=== PATIENT | female | born 1995 | race Hispanic/Latino ===

== ENCOUNTER 2018-12-03 22:26 | Emergency (ER) | payer OTHER ==
[~2018-12-03] VITALS: Ht 154.9 cm; Wt 58.2 kg
[2018-12-03] MEDS ORDERED: WELLTAB40 PO (22:39)
[2018-12-03] MEDS ORDERED: FEMA2.5T4 PO (22:39)
[2018-12-04 00:53] LABS: BASO # 0.1 10^3/uL (0.0-0.2); BASO % 0.7 % (0.0-1.0); EOS # 0.1 10^3/uL (0.0-0.50); EOS % 1.6 % (0.0-3.0); HEMATOCRIT 37.5 % (36.0-47.0); HEMOGLOBIN 12.6 g/dl (12.0-15.5); LYMPH # 2.7 10^3/uL (1.5-6.5); LYMPH % 33.5 % (24.0-44.0); MEAN CORPUSCULAR HEMOGLOBIN 31.4 pg (27.0-33.0); MEAN CORPUSCULAR HGB CONC 33.6 g/dl (32.0-36.5); MEAN CORPUSCULAR VOLUME 93.5 fl (80.0-96.0); MONO # 0.7 10^3/uL (0.0-0.8); MONO % 8.8 % (0.0-5.0); NEUTROPHILS # 4.4 10^3/uL (1.8-7.7); NEUTROPHILS % 55.2 % (36.0-66.0); PLATELET COUNT, AUTOMATED 328 10^3/uL (150-450); RED BLOOD COUNT 4.01 10^6/uL (4.00-5.40)
[2018-12-04 01:17] LABS: ALBUMIN 3.8 GM/DL (3.2-5.2); ALT/SGPT 26 U/L (12-78); BILIRUBIN,DIRECT < 0.1 MG/DL (0.0-0.2); BILIRUBIN,TOTAL 0.2 MG/DL (0.2-1.0); BLOOD UREA NITROGEN 12 MG/DL (7-18); CALCIUM LEVEL 8.7 MG/DL (8.5-10.1); CARBON DIOXIDE LEVEL 30 MEQ/L (21-32); CHLORIDE LEVEL 105 MEQ/L (98-107); CREATININE FOR GFR 0.77 MG/DL (0.55-1.30); GLOMERULAR FILTRATION RATE > 60.0 (>60); GLUCOSE, FASTING 105 MG/DL (70-100); LIPASE 159 U/L (73-393); POTASSIUM SERUM 3.9 MEQ/L (3.5-5.1); SODIUM LEVEL 140 MEQ/L (136-145); TOTAL PROTEIN 7.2 GM/DL (6.4-8.2)
[2018-12-04] MEDS ORDERED: IBUPROFEN 800 MG TAB PO ONE (02:30)
--- NOTE | 2018-12-04 04:07 | REPVR ---
EXAM: CT Abdomen and Pelvis Without Contrast EXAM DATE/TIME: 12/04/2018 2:17 AM CLINICAL HISTORY: 23 years old, female; Abdominal pain; Flank; Left; Additional info: L colic TECHNIQUE: Imaging protocol: Axial computed tomography images of the abdomen and pelvis without contrast. Coronal and sagittal reformatted images were created and reviewed. Radiation optimization: All CT scans at this facility use at least one of these dose optimization techniques: automated exposure control; mA and/or kV adjustment per patient size (includes targeted exams where dose is matched to clinical indication); or iterative reconstruction. COMPARISON: No relevant prior studies available. FINDINGS: Liver: Normal. No mass. Gallbladder and bile ducts: Contracted gallbladder. Pancreas: Normal. No ductal dilation. Spleen: Normal. No splenomegaly. Adrenals: Normal. No mass. Kidneys and ureters: Normal. No hydronephrosis. Stomach and bowel: Moderate fecal loading in the right. No bowel dilatation or obstruction. Appendix: No evidence of appendicitis. Intraperitoneal space: Normal. No free air. No significant fluid collection. Vasculature: Normal. No abdominal aortic aneurysm. Lymph nodes: Subcentimeter mesenteric root lymph nodes Bladder: Unremarkable as visualized. Reproductive: Retroverted uterus. colon. Bones/joints: No acute fracture. No dislocation. Soft tissues: Unremarkable. IMPRESSION: No acute finding. Moderate fecal loading in the right. No bowel dilatation or obstruction. Electronically signed by: Suzanne Diamond On 12/04/2018 04:06:31 AM
[2018-12-04] MEDS ORDERED: BACT800T5 PO (04:13)
[2018-12-04] MEDS ORDERED: PYRI1TAB5 PO (04:13)
[2018-12-04] MEDS ORDERED: PHENAZOPYRIDINE 100 MG TAB PO ONE (04:15)
[2018-12-04 04:16] VITALS: BP 102/59
== END 2018-12-04 04:24 | disposition home or self-care (01) ==
LOC: M ED 22:26
DX: N30.00 Acute cystitis without hematuria (principal); Z79.899 Other long term (current) drug therapy

== ENCOUNTER 2019-01-29 18:43 | Emergency (ER) | payer OTHER ==
[~2019-01-29] VITALS: Ht 154.9 cm; Wt 58.2 kg
[~2019-01-29 18:43] MED LIST: BACT800T5 PO; FEMA2.5T4 PO; PYRI1TAB5 PO; WELLTAB40 PO
[2019-01-29] MEDS ORDERED: CIPR-249 PO (21:36)
[2019-01-29] MEDS ORDERED: PYRI1TAB5 PO (21:36)
[2019-01-29 21:44] VITALS: BP 110/76
[2019-01-29] MEDS ORDERED: PHENAZOPYRIDINE 100 MG TAB PO ONE (21:45)
[2019-01-29] MEDS ORDERED: CIPROFLOXACIN 500 MG TAB PO ONE (21:45)
== END 2019-01-29 21:45 | disposition home or self-care (01) ==
LOC: M ED 18:43
DX: N39.0 Urinary tract infection, site not specified (principal); R31.9 Hematuria, unspecified

== ENCOUNTER → 2019-02-28 | Outpatient (CLI) | payer OTHER ==
[~2019-02-28] MED LIST changes: +CIPR-249 PO
[2019-02-28 18:02] LABS: HEMATOCRIT 41.4 % (36.0-47.0); HEMOGLOBIN 13.5 g/dl (12.0-15.5); MEAN CORPUSCULAR HEMOGLOBIN 31.3 pg (27.0-33.0); MEAN CORPUSCULAR HGB CONC 32.6 g/dl (32.0-36.5); MEAN CORPUSCULAR VOLUME 95.8 fl (80.0-96.0); PLATELET COUNT, AUTOMATED 384 10^3/uL (150-450); RED BLOOD COUNT 4.32 10^6/uL (4.00-5.40); WHITE BLOOD COUNT 6.6 10^3/uL (4.0-10.0)
[2019-02-28 18:22] LABS: FREE T4 0.84 NG/DL (0.76-1.46); THYROID STIMULATING HORMONE 0.848 uIU/ML (0.358-3.740)
[2019-02-28 19:13] LABS: HEMOGLOBIN A1c 5.1 %
[2019-03-06 16:25] LABS: ANTI MULLERIAN HORMONE 11.7 ng/mL (.); TESTOSTERONE FREE (DIRECT) 0.9 pg/mL (0.0-4.2)
== END ==
LOC: M SMT 15:21
PROVIDERS: ATTEND Obstetrics & Gynecology
DX: E28.2 Polycystic ovarian syndrome (principal)

== ENCOUNTER → 2019-03-06 | Outpatient (CLI) | payer OTHER ==
--- NOTE | 2019-03-06 18:39 | REP ---
PELVIC ULTRASOUND: Real-time sonographic evaluation of the pelvis was performed utilizing transabdominal and endovaginal technique. The bladder measures 3.4 x 2.5 x 5.4 cm. The uterus measures 5.8 x 3.3 x 3.9 cm. Endometrial thickness is 6 mm. Trace fluid is seen in the cervical canal. Right ovary measures 5.0 x 1.5 x 2.3 cm and left ovary 5.0 x 1.3 x 2.4 cm. The largest follicle in the right ovary measures 7 x 5 x 6 mm. Several small follicles less than 1 cm in diameter are seen along the periphery of both ovaries. There is no adnexal mass or cyst. There is no evidence of ovarian torsion with blood flow seen in each ovary with duplex Doppler evaluation. Trace free fluid is seen posterior to the superior uterus. The ovarian volume on the right is 9.0 mL and the left 8.2 mL. IMPRESSION: Endometrial thickness 6 mm. Several subcentimeter follicles are seen within the periphery of both ovaries. The largest follicle on the right measures 7 x 5 x 6 mm. There is trace endocervical fluid. There is trace free fluid posterior to the uterus which is likely physiologic. Electronically Signed by Satish Gonzalez MD 03/06/2019 06:49 P
== END ==
LOC: M RAD 17:18
PROVIDERS: ATTEND Obstetrics & Gynecology
DX: E28.2 Polycystic ovarian syndrome (principal)

== ENCOUNTER 2020-02-25 19:16 | Emergency (ER) | payer OTHER ==
[~2020-02-25] VITALS: Ht 154.9 cm; Wt 65.0 kg
--- NOTE | 2020-02-25 21:47 | REPVR ---
PROCEDURE INFORMATION: Exam: XR Chest, 2 Views Exam date and time: 02/25/2020 9:15 PM Age: 24 years old Clinical indication: Other: Chest pain TECHNIQUE: Imaging protocol: XR of the chest Views: 2 views. COMPARISON: No relevant prior studies available. FINDINGS: Lungs: Unremarkable. No consolidation. Pleural space: Unremarkable. No pleural effusion. No pneumothorax. Heart/Mediastinum: Unremarkable. No cardiomegaly. Bones/joints: Unremarkable. Soft tissues: Bilateral nipple rings. IMPRESSION: No acute cardiopulmonary process. Electronically signed by: Sean Prasad On 02/25/2020 21:46:44 PM
[2020-02-25 21:49] VITALS: BP 109/72
--- NOTE | 2020-02-26 07:36 | ECGEPIP ---
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
== END 2020-02-25 21:52 | disposition home or self-care (01) ==
LOC: M ED 19:16
DX: R07.89 Other chest pain (principal)

== ENCOUNTER 2020-03-07 11:47 | Emergency (ER) | payer OTHER ==
[~2020-03-07] VITALS: Ht 154.9 cm; Wt 65.0 kg
[2020-03-07 11:48] VITALS: BP 119/66
--- NOTE | 2020-03-07 13:11 | REPVR ---
PROCEDURE INFORMATION: Exam: XR Right Hand Exam date and time: 03/07/2020 12:13 PM Age: 24 years old Clinical indication: Pain; Hand; Right; Additional info: Pain and bruising after fall TECHNIQUE: Imaging protocol: XR Right hand. Views: 3 or more views. COMPARISON: No relevant prior studies available. FINDINGS: Bones/joints: No acute fracture. No dislocation. Alignment is normal. Bone mineralization is normal. No erosions are seen. No significant degenerative change. Soft tissues: Minimal soft tissue swelling at the wrist. IMPRESSION: No acute osseous abnormality. Electronically signed by: Malathi Wheeler On 03/07/2020 13:10:20 PM
== END 2020-03-07 12:23 | disposition home or self-care (01) ==
LOC: M ED 11:47
DX: S60.221A Contusion of right hand, initial encounter (principal); W19.XXXA Unspecified fall, initial encounter; Y92.410 Unspecified street and highway as the place of occurrence of the external cause; Y93.9 Activity, unspecified; Y99.9 Unspecified external cause status

== ENCOUNTER 2020-03-18 17:40 | Emergency (ER) | payer OTHER ==
[~2020-03-18] VITALS: Ht 154.9 cm; Wt 65.1 kg
[2020-03-18 17:41] VITALS: BP 118/70
[2020-03-18] MEDS ORDERED: MULTTAB20 PO (17:56)
[2020-03-18 18:47] LABS: BASO % 0.4 % (0.0-1.0); EOS # 0.1 10^3/uL (0.0-0.5); EOS % 0.7 % (0.0-3.0); HEMOGLOBIN 13.9 g/dl (12.0-15.5); LYMPH # 2.2 10^3/uL (1.5-5.0); LYMPH % 26.3 % (24.0-44.0); MEAN CORPUSCULAR HEMOGLOBIN 30.4 pg (27.0-33.0); MEAN CORPUSCULAR HGB CONC 33.1 g/dl (32.0-36.5); MEAN CORPUSCULAR VOLUME 91.9 fl (80.0-96.0); MONO # 0.5 10^3/uL (0.0-0.8); MONO % 5.8 % (0.0-5.0); NEUTROPHILS # 5.6 10^3/uL (1.5-8.5); NEUTROPHILS % 66.4 % (36.0-66.0); PLATELET COUNT, AUTOMATED 383 10^3/uL (150-450); RED BLOOD COUNT 4.57 10^6/uL (4.00-5.40); WHITE BLOOD COUNT 8.5 10^3/uL (4.0-10.0)
[2020-03-18 19:12] LABS: ALBUMIN 4.1 GM/DL (3.2-5.2); ALT/SGPT 15 U/L (12-78); BILIRUBIN,DIRECT 0.1 MG/DL (0.0-0.2); BILIRUBIN,TOTAL 0.4 MG/DL (0.2-1.0); BLOOD UREA NITROGEN 12 MG/DL (7-18); CALCIUM LEVEL 9.3 MG/DL (8.5-10.1); CARBON DIOXIDE LEVEL 26 MEQ/L (21-32); CHLORIDE LEVEL 104 MEQ/L (98-107); CREATININE FOR GFR 0.96 MG/DL (0.55-1.30); GLOMERULAR FILTRATION RATE > 60.0 (>60); GLUCOSE, FASTING 87 MG/DL (70-100); HCG, SERUM QUANTITATIVE 599 MIU/ML; LIPASE 145 U/L (73-393); POTASSIUM SERUM 4.3 MEQ/L (3.5-5.1); SODIUM LEVEL 137 MEQ/L (136-145); TOTAL PROTEIN 7.8 GM/DL (6.4-8.2)
--- NOTE | 2020-03-18 21:44 | REPVR ---
PROCEDURE INFORMATION: Exam: US First Trimester, Transabdominal and US , Transvaginal Exam date and time: 03/18/2020 8:28 PM Age: 24 years old Clinical indication: complicated by abdominal or pelvic pain; Left lower quadrant; First trimester; Gestational age or lmp: 01/26/20; ; Additional info: 7wks with llq cramping R/O ectopic TECHNIQUE: Imaging protocol: Real-time transabdominal obstetrical ultrasound of the maternal pelvis and a first trimester , less than 14 weeks 0 days, with image documentation. Transvaginal imaging was used for better evaluation of the fetus, adnexa, and/or cervix. COMPARISON: No relevant prior studies available. FINDINGS: Uterus: The uterus measures 7.2 cm in length by 3.9 cm in AP dimension by 5.3 cm in transverse dimension. The endometrium measures 1.3 cm in thickness. Within the central portion of the endometrium there is a tiny fluid-filled structure measuring 2 mm. This could be a very early gestational sac but this would be approximately 4 weeks gestation. No pole or cardiac activity can be identified. A follow-up ultrasound would be important to document development of a normal gestational sac with a pole. A tiny pseudo gestational sac can be seen with ectopic . Microscopic ectopic therefore could not be excluded with this scan. Cervix: Unremarkable. Right adnexa: The right ovary measures 4.4 cm in length by 1.9 cm in thickness. There is a small cyst of the right ovary which measures 8 mm and this is probably a collapsing corpus luteum cyst. There is vascular flow of the right ovary. Left adnexa: The left ovary measures 4 point 1 cm in length by 1.8 cm in thickness. There is vascular flow of the left ovary. Intraperitoneal space: There is no evidence of adnexal mass and no evidence of significant free fluid in the pelvis. Urinary bladder: Normal appearing urinary bladder. IMPRESSION: 1. Within the central portion of the endometrium there is a tiny fluid-filled structure which could be a tiny gestational sac but only 4 weeks gestation. Follow-up ultrasound would be important to document that there is development of a normal gestational sac with a pole. This could be a tiny pseudo gestational sac associated with ectopic , microscopic ectopic therefore not excluded. 2. Small collapsing corpus luteum cyst right ovary. Electronically signed by: Brennon Allen On 03/18/2020 21:44:12 PM
== END 2020-03-18 22:26 | disposition home or self-care (01) ==
LOC: M ED 17:40
DX: O26.891 Other specified pregnancy related conditions, first trimester (principal); R10.32 Left lower quadrant pain; O34.81 Maternal care for other abnormalities of pelvic organs, first trimester; N83.291 Other ovarian cyst, right side; Z3A.01 Less than 8 weeks gestation of pregnancy

== ENCOUNTER → 2020-03-20 | Outpatient (CLI) | payer OTHER ==
[~2020-03-20] MED LIST changes: +MULTTAB20 PO
== END ==
LOC: M LAB 16:20
PROVIDERS: ATTEND Nurse Practitioner Family
DX: Z13.9 Encounter for screening, unspecified (principal)

== ENCOUNTER 2020-06-09 08:07 | Emergency (ER) | payer OTHER ==
[~2020-06-09] VITALS: Ht 154.9 cm; Wt 62.2 kg
--- OUTSIDE RECORDS SUMMARY | 2020-06-09 08:16 | CCD ---
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 If such information is present, then the following federally mandated warning applies: This information has been disclosed to you from records protected by federal confidentiality rules (42 CFR part 2). The federal rules prohibit you from making any further disclosure of this information unless further disclosure is expressly permitted by the written consent of the person to whom it pertains or as otherwise permitted by 42 CFR part 2. A general authorization for the release of medical or other information is NOT sufficient for this purpose. The Federal rules restrict any use of the information to criminally investigate or prosecute any alcohol or drug abuse patient.The records that you are about to access may contain highly sensitive health information, the redisclosure of which is protected by Article 27-F of the [place] State Public Health law. If you continue you may have access to information: Regarding HIV / AIDS; Provided by facilities licensed or operated by the [facility] Office of Mental Health; or Provided by the [facility] Office for People With Developmental Disabilities. If such information is present, then the following [facility] mandated warning applies: This information has been disclosed to you from confidential records which are protected by state law. State law prohibits you from making any further disclosure of this information without the specific written consent of the person to whom it pertains, or as otherwise permitted by law. Any unauthorized further disclosure in violation of state law may result in a fine or mcc sentence or both. A general authorization for the release of medical or other information is NOT sufficient authorization for further disc losure. Encounters Encounter Providers Location Date Indications Data Source(s ) Emergency Attender: SRINIVAS Dietzant: STAFF NON 07/02/2019 12:07:00 AM EST - 07/02/2019 01:45:00 AM [facility] ital Patient discharged. [address] [address] 06/10/2019 12:00:00 AM EST eCW1 ([facility]) Insurance Providers Payer name Policy type / Coverage type Policy ID Covered republican ID Covered republican's relationship to thomas Policy Thomas Plan Information [facility] ACTIVE DUTY [id number] SP [id number] [facility] REG O [id number] S [id number] [facility] HUMANA - O/P [id number] 18 [id number] [facility] [id number] SP [id number] Problems, Conditions, and Diagnoses Code Display Name Description Problem Type Effective Dates Data Source(s) E28.2 [id number] Polycystic ovarian syndrome Problem 06/10/19 20 12:00:00 AM EST eCW1 ([facility]) A0811 Acute gastroenteropathy due to Weskan a gent Acute gastroenteropathy due to Weskan agent Diagnosis 07/02/2019 12:07:00 AM [facility] R197 Diarrhea, unspecified Diarrhea, unspecified Diagnosis 07/02/2019 12:07:00 AM [facility] Results ID Date Data Source [id number] 07/02/2019 12:07:00 AM EST [facility] 1 OrderSheet [facility] Emergency Department [address] [place] [address] Phone #: ext- [phone] 07/02/2019 00:07 Patient: GRACE CAI Sex: F : 1995 Age: 23yWEIGHT:61.2 kg (S) HEIGHT:61 inches (S) BMI:25.5ALLERGIES: No Known Drug AllergyCHIEF COMPLAINT: vomiting, diarrheaDIAGNOSIS: GastroenteritisLAB ORDERSOrder Description Priority Entered Acknowledged InitialedCBC w Diff STAT 00:21 07/02/2019 00:26 Srinivas Oneill RN, M.D.;CMP STAT 00:07/02/2019 00:26 Srinivas Oneill RN, M.D.;Lipase STAT 00:07/02/2019 00:26 Srinivas Oneill RN, M.D.;Beta-HCG, Qual STAT 00:07/02/2019 00:26 Srinivas Lowry RN, M.D.;DIAGNOSTIC STUDY ORDERSOrder Description Priority Entered Acknowledged InitialedMEDICATION/IV/DRIP/FLUID ORDERSOrder Description Priority Entered Acknowledged InitialedNS IV 1000 mL 00:21 07/02/2019 00:37 ManiBolus: : Bolus 1000 Srinivas Ken RNmL (X1) M.DShannon;Zofran IVP 8 mg 00:21 07/02/2019 00:37 Srinivas Oneill RN, M.D.;Phenergan 12.5 mg 01:23 07/02/2019 01:27 StevenIVP X1 dose: 12.5 Srinivas Ken RNmg (NOW x1, HIGH M.D.;ALERTMEDICATION)GENERAL ORDERS 2 OrderSheet [facility] Emergency Department [address] [place] [address] Phone #: ext- [phone] 07/02/2019 00:07 --------- Patient: GRACE CAI Sex: F : 1995 Age: 23yOrder Description Priority Entered Acknowledged InitialedNPO 00:07/02/2019 00:26 Srinivas Oneill RN, M.D.;Saline Lock 00:07/02/2019 00:26 Srinivas Oneill RN, M.D.;[Electronically signed by Mani Lopez RN (:45 07/02/2019)][Electronically signed by Srinivas Ken M.D. (03:05 07/02/2019)][Electronically locked by Mani Lopez RN (:45 07/02/2019)] Name Value Range Interpretation Code Description Data Natalia rce(s) Supporting Document(s) ID Date Data Source [id number] 07/02/2019 12:07:00 AM EST [facility] 1 Medication Reconciliation Report [facility] Emergency Department [address] [place] [address] Phone #: ext- [phone] 07/02/2019 00:07 Patient: GRACE CAI Sex: F : 1995 Age: 23yWeight: 61.2 kgHeight/Length: 61 in.BMI: 25.5ALLERGIES: No Known Drug AllergyThe patient's Home Medications are listed below:CONTINUE TAKING THE FOLLOWING MEDICATIONS: VITD Wellbutrin Oral 300mg, dailyThe source(s) of the original Home Medication information:patientThe following Medications were given to the patient in the Emergency Department:NS [IV] IV Fluids bolus 1000 mL, then 1000 mL/hr, administered: 07/02/2019 12:37:00 AMZofran [IVP] IVP 8 mg, administered: 07/02/2019 12:37:00 AMPHENERGAN [IVP] IVP 12.5 mg, administered: 07/02/2019 1:27:00 AMThe following Medications were prescribed to the patient:Zofran 4 mg tablet Take 1 tablet four times a day as needed for 4 days -- Dispense 16 tablet. Refills: 0.Substitution permitted.[facility] [address] ; [place] [address]. . -- Srinivas Ken M.D. Name Value Range Interpretation Code Description Data Natalia rce(s) Supporting Document(s) ID Date Data Source [id number] 07/02/2019 12:07:00 AM [facility] 1 Medication Administration Record [facility] Emergency Department [address] [place] [address] Phone #: ext- [phone] 07/02/2019 00:07 Patient: GRACE CAI Sex: F : 1995 Age: 23yWeight: 61.2 kgHeight/Length: 61 inBMI: 25.5ALLERGIES: No Known Drug Allergy Date/Time Medication Administered Medication OrderedStart NS [IV] NS IV 1000 mL Bolus: : Bolus 127536:37 07/02/2019 Dose: IV Fluids mL (X1)Mani Lopez RN Rate: 1000 mL/hr---- Bolus: 1000 mLStop Dispensed: 1000 mL bag01:37 07/02/2019 Site: #1 right ACSteven EDWARD LopezGiven ZOFRAN [IVP] (ONDANSETRON HCL) Zofran IVP 8 mg00:37 07/02/2019 Dose: 8 mg IVPSteven DEWARD Lopez Site: #1 right ACGiven PHENERGAN [IVP] (PROMETHAZINE Phenergan 12.5 mg IVP X1 dose:01:27 07/02/2019 HCL) 12.5 mg (NOW x1, HIGH ALERTStevalexander Lopez RN Dose: 12.5 mg IVP MEDICATION) Site: #1 right AC Name Value Range Interpretation Code Description Data Natalia rce(s) Supporting Document(s) ID Date Data Source [id number] 07/02/2019 12:07:00 AM EST [facility] 1 General Instructions [facility] Emergency Department [address] [place] [address] Phone #: ext- [phone] 07/02/2019 00:07 Patient: GRACE CAI Sex: F : 1995 Age: 23yAcute norovirus gastroenteritis. No volume depletion, dehydration or hypotension.INSTRUCTIONSAlternate Tylenol (Acetaminophen) or Motrin (Ibuprofen) for fever, temperature greater than 102 degreesorally. Take according to label instructions. Return to work in two days.Drink plenty of fluids. Avoid alcohol and NSAIDS. NSAIDS include aspirin, ibuprofen (Advil) and naproxen(Aleve). Avoid fatty, fried/greasy, lactose-containing (such as milk, cheese and ice cream), salty and spicyfoods.Warnings: Further evaluation is necessary. It is very important to follow up with a healthcare provider.GENERAL WARNINGS: Return or contact your physician immediately if your condition worsens orchanges unexpectedly, if not improving as expected, or if other problems arise. SPECIFICALLY, return ifyou develop pain in the abdomen, pelvis, back or shoulder, fever, vomiting, the inability to keep fluidsdown, blood in vomitus, blood in diarrhea, fainting or lightheadedness.Your Current Medications: Your current home medications have been reviewed.CONTINUE TAKING THE FOLLOWING MEDIC ATIONS:VITD*.Wellbutrin Oral : 300mg daily.Prescription Medications:Zofran 4 mg tablet Take 1 tablet four times a day as needed for 4 days -- Dispense 16 tablet. Refills: 0.Substitution permitted.Pharmacy - [facility] - [address] ; [place] [address]. .Follow-up:Return to the emergency department as needed. Follow up with your healthcare provider in two days ifnot better. Call for an appointment. Reason for referral: evaluation and treatment. Summary of careprovided to patient via paper.Understanding of the discharge instructions verbalized by patient. Expected course of illness, dischargeinstructions, activity level, diet, prescriptions x1, follow-up appointment and risks and benefits of treatmentreviewed with patient and understanding verbalized. Agrees to plan of care. ADDITIONAL INFORMATION 2 General Instructions [facility] Emergency Department [address] [place] [address] Phone #: ext- [phone] 07/02/2019 00:07 Patient: GRACE CAI Sex: F : 1995 Age: 23yViral Gastroenteritis (Adult)Gastroenteritis is commonly called the "stomach flu," although it has nothing to do with influenza. It ismost often caused by a virus that affects the stomach and intestinal tract and usually lasts from 2 to 7days. Common viruses causing gastroenteritis include norovirus, rotavirus, and hepatitis A. Non-viralcauses of gastroenteritis include bacteria, parasites, and toxins.The danger from repeated vomiting or diarrhea is dehydration. This is the loss of too much fluid fromthe body. When this occurs, body fluids must be replaced. Antibiotics don't help with this illnessbecause it is usually viral. Simple home treatment will be helpful.Symptoms of viral gastroenteritis may include: Watery, loose stools Stomach pain or abdominal cramps Fever and chills Nausea and vomiting Loss of bowel control 3 General Instructions [facility] Emergency Department [address] [place] [address] Phone #: ext- [phone] 07/02/2019 00:07 Patient: GRACE CAI Sex: F : 1995 Age: 23y HeadacheHome careGastroenteritis is transmitted by contact with the stool or vomit of an infected person. This can occurfrom person to person or from contact with a contaminated surface.Follow these guidelines when caring for yourself at home: If symptoms are severe, rest at home for the next 24 hours or until you are feeling better. Wash your hands with soap and water or use alcohol-based luster applicator to prevent the spread of infection. Wash your hands after touching anyone who is sick. Wash your hands or use alcohol-based luster applicator after using the toilet and before meals. Clean the toilet after each use.Remember these tips when preparing food: People with diarrhea should not prepare or serve food to others. When preparing foods, wash your hands before and after. Wash your hands after using cutting boards, countertops, knives, or utensils that have been in contact with raw food. Dry your hands with a single use towel. Keep uncooked meats away from cooked and kvqec-ca-vjw foods.MedicineYou may use acetaminophen or NSAID medicines like ibuprofen or naproxen to control fever unlessanother medicine was given. If you have chronic liver or kidney disease, talk with your healthcareprovider before using these medicines. Also talk with your provider if you've had a stomach ulceror gastrointestinal bleeding. Don't give aspirin to anyone under 18 years of age who is ill with a fever.It may cause severe liver damage. Don't use NSAIDS is you are already taking one for anothercondition (like arthritis) or are on aspirin (such as for heart disease or after a stroke).If medicine for vomiting or diarrhea are prescribed, take these only as directed. Nausea and diarrheamedicines are generally OK unless you have bleeding, fever, or severe abdominal pain.DietFollow these guidelines for food: Water and liquids are important so you don't get dehydrated. Drink a small amount at a time or suck on ice chips if you are vomiting. 4 General Instructions [facility] Emergency Department [address] [place] [address] Phone #: ext- [phone] 07/02/2019 00:07 Patient: GRACE CAI Sex: F : 1995 Age: 23y If you eat, avoid fatty, greasy, spicy, or fried foods. Don't eat dairy if you have diarrhea. This can make diarrhea worse. Avoid tobacco, alcohol, and caffeine which may worsen symptoms.During the first 24 hours (the first full day), follow the diet below: Beverages. Sports drinks, soft drinks without caffeine, reji adalberto, mineral water (plain or flavored), decaffeinated tea and coffee. If you are very dehydrated, sports drinks aren't a good choice. They have too much sugar and not enough electrolytes. In this case, commercially available products called oral rehydration solutions, are best. Soups. Eat clear broth, consomm, and bouillon. Desserts. Eat gelatin, ice pops, and fruit juice bars.During the next 24 hours (the second day), you may add the following to the above: Hot cereal, plain toast, bread, rolls, and crackers Plain noodles, rice, mashed potatoes, chicken noodle or rice soup Unsweetened canned fruit (avoid pineapple), bananas Limit fat intake to less than 15 grams per day. Do this by avoiding margarine, butter, oils, mayonnaise, sauces, gravies, fried foods, peanut butter, meat, poultry, and fish. Limit fiber and avoid raw or cooked vegetables, fresh fruits (except bananas), and bran cereals. Limit caffeine and chocolate. Don't use spices or seasonings other than salt. Limit dairy products. Avoid alcohol.During the next 24 hours: Gradually resume a normal diet as you feel better and your symptoms improve. If at any time it starts getting worse again, go back to clear liquids until you feel better.Follow-up careFollow up with your healthcare provider, or as advised. Call your provider if you don't get better nfoavh32 hours or if diarrhea lasts more than a week. Also follow up if you are unable to keep down liquidsand get dehydrated. If a stool (diarrhea) sample was taken, call as directed for the results. 5 General Instructions [facility] Emergency Department [address] [place] [address] Phone #: ext- [phone] 07/02/2019 00:07 Patient: GRACE CAI Sex: F : 1995 Age: 23yCall 911Call 911 if any of these occur: Trouble breathing Chest pain Confused Severe drowsiness or trouble awakening Fainting or loss of consciousness Rapid heart rate Seizure Stiff neckWhen to seek medical adviceCall your healthcare provider right away if any of these occur: Abdominal pain that gets worse Continued vomiting (unable to keep liquids down) Frequent diarrhea (more than 5 times a day) Blood in vomit or stool (black or red color) Dark urine, reduced urine output, or extreme thirst Weakness or dizziness Drowsiness Fever of 100.4F (38C) or higher, or as directed by your healthcare provider Dawood bashir [phone] [employer]. [address] [place] [address], [place] [address]. All rights reserved. This information is not intended as asubstitute for professional medical care. Always follow your healthcare professional's instructions.Fever Control (Adult)A fever is a normal reaction of your body to an illness. The temperature itself usually isn't harmful. Itactually helps your body fight infections. You don't need to treat a fever unless you feel veryuncomfortable. 6 General Instructions [facility] Emergency Department [address] [place] [address] Phone #: ext- [phone] 07/02/2019 00:07 Patient: GRACE CAI Sex: F : 1995 Age: 23yHome careFollow these tips to take care of yourself at home: If you feel warm, ch isaak your temperature. Dress in light clothing. This will help you lose extra body heat through your skin. The fever will go up if you wear extra layers or wrap in blankets. Fever causes your body to lose water through evaporation. Drink plenty of fluids. These include water, juice, clear sodas, reji adalberto, or lemonade.Fever medicinesYou can take acetaminophen every 4 to 6 hours if: You feel very uncomfortable Your oral temperature is 100.4F (38C) or higherIf you can't take or keep down oral medicine, ask your pharmacist for acetaminophen suppositories.You don't need a prescription for these.If the fever doesn't get better within 1 hour after you take acetaminophen, take ibuprofen. If thisworks, keep taking the ibuprofen every 6 to 8 hours.If you have chronic liver or kidney disease, talk with your healthcare provider before taking thesemedicines. Also talk with your provider if you ever had a stomach ulcer or GI (gastrointestinal)bleeding.If either medicine alone doesn't keep the fever down, you may switch off between the 2 medicinesevery 3 to 4 hours. But do this only if your healthcare provider has told you to. For example, takeibuprofen. Wait 3 hours. Then take acetaminophen. Wait 3 hours. Take ibuprofen, and so on. Followyour provider's instructions exactly.Don't give aspirin to anyone younger than age 19 who is ill with a fever. Aspirin can cause seriousside effects such as liver damage and Blossom syndrome. Although rare, Blossom syndrome is a veryserious illness usually found in children younger than age 15. The syndrome is closely linked to theuse of aspirin or aspirin-containing medicine during viral infection.Follow-up careFollow up with your healthcare provider if you don't get better after 48 hours.When to seek medical adviceCall your healthcare provider right away if any of these occur: 7 General Instructions [facility] Emergency Department [address] [place] [address] Phone #: ext- [phone] 07/02/2019 00:07 Patient: GRACE CAI Sex: F : 1995 Age: 23y Fever, as directed by your healthcare provider, or: o Fever of 100.4F (38C) or above lasting for 24 to 48 hours o Fever lasting more than 3 days, even without other symptoms o Fever that happens after visiting a foreign country o Fever that happens within a month after visiting a country with malaria. Malaria is a serious illness. A fever can still be malaria even if you took medicine to prevent it. The medicine does not work in all cases. Confusion or trouble thinking Headache or stiff neck Flat, small, purplish red spots on your skin Low blood pressure Fast heart rate Fast (rapid) breathing You are You just had surgery, another medical procedure, or were just discharged from the hospital Use of medicines that suppress the immune system (immunosuppressant s). These include Prednisone, cancer medicines, and organ transplant rejection medicines. If you are not sure about whether your medicines suppress your immune system, ask your healthcare provider.Call 911Someone should call 911 if you: Are having trouble breathing or shortness of breath Are unresponsiveImportant reminderCall your healthcare provider if you get a fever after visiting a place where infectious diseases arecommon. Many people greens picker a cold or other virus while traveling. This usually goes away without aproblem. But, some places have more serious diseases. Fever with certain other symptoms maymean you have a serious illness. Symptoms to watch for include diarrhea, skin rashes, insect bites,and skin boils, or infections. Your provider may ask you: What you did on your trip 8 General I nstructions [facility] Emergency Department [address] [place] [address] Phone #: ext- [phone] 07/02/2019 00:07 Patient: GRACE CAI Sex: F : 1995 Age: 23y How long you were there Where you stayed (hotel, [place], tent) What you ate and drank If you were bitten by insects or other bugs If you swam in freshwater If you had sex or got a tattoo or piercing while you were thereCheck the [facility] to get more information about specific infectious diseases in the areas you havetraveled. [phone] [employer] [address] [place] [address]. All rights reserved. This information is not intended as asubstitute for professional medical care. Always follow your healthcare professional's instructions. You have been given the following additional information: Gastroenteritis, Viral (Adult) Fever Control (Adult) Return to work in two days.(Electronically signed by Srinivas Ken M.D. 07/02/2019 03:05) Name Value Range Interpretation Code Description Data Natalia rce(s) Supporting Document(s) ID Date Data Source [id number] 07/02/2019 12:07:00 AM EST [facility] 1 Clinical Report - Nurses [facility] Emergency Department [address] [place] [address] Phone #: ext- [phone] 07/02/2019 00:07 Patient: GRACE CAI Sex: F : 1995 Age: 23yTRIAGEArrived by private vehicle. Historian: patient. Accompanied by family.Triage time: 00:07/02/2019. Acuity: LEVEL 3.Chief Complaint: ABDOMINAL PAIN, NAUSEA, VOMITING and DIARRHEA.This started today. Onset was gradual. Symptoms still present (1900 hours). She has had na usea,vomiting. The vomiting has occurred twice and moderate, cramping, constant abdominal pain. She hashad diarrhea. This has occurred several times. It has been watery.Treatment AIRLINE PILOT/FIRST OFFICER:None.SEPSIS SCREEN: NEGATIVE. --00:15 07/02/19 Mani Lopez RN00:07/02/19. BP: 113/76 (regular adult cuff) taken on the right arm, via an automated monitor, whilesitting. MAP: 88. HR: 98 (regular and normal rate). RR: 16 (regular, unlabored and normal). O2 saturation:98% on room air. Temp: 97.4 F (oral). Pain level now: 510. --00:15 07/02/19 Mani Lopez RN.Weight: 61.2 kg stated. Height/Length: 61 inches Per Patient. BMI: 25.5. --00:13 07/02/19 Mani Lopez RN.MedicationsWellbutrin Oral 300mg, daily. --00:11 07/02/19 Mani Lopez RN VITD. --00:07/02/19 Mani Lopez RN.AllergiesNo Known Drug Allergy. --00:11 07/02/19 Mani Lopez RN.PROBLEMS:Depression.Anxiety Reaction. --00:12 07/02/19 Mani Lopez RN.Medication/allergy information source: the patient. --00:15 07/02/19 Mani Lopez RN.HistoryPAST MEDICAL HX: Immunizations: up-to-date. Last normal menstrual period was 2 weeks ago.SURGERY HX: No history of previous surgery.SOCIAL HX: Never smoker. No alcohol use or drug use. No known contact with a sick individual. Shewas offered HIV testing but declined and hepatitis C testing but declined. She has not traveled outside the [address] [place] [address] Emergency Department [address] [place] [address] Phone #: ext- [phone] 07/02/2019 00:07 Patient: GRACE CAI Sex: F : 1995 Age: 23y [place] Infectious disease exposure: No infectious disease exposure. SELF HARM ASSESSMENT: Self harm assessment was performed. The patient answered "no" to the question(s) "Have you recently felt down, depressed, or hopeless?", "Do you have thoughts of harming or killing yourself?", "Do you have a plan for harming or killing yourself?", "Have you recently had thoughts about harming or killing others?", "Do you have any dangerous items in your possession?", "Have you noticed less interest or pleasure in doing things?", "Are you here because you tried to hurt yourself?" and "Have you ever tried to hurt yourself before today?". ABUSE ASSESSMENT: No report of abuse. FALL RISK ASSESSMENT: Fall risk assessment completed. No risk factors identified. --00:15 07/02/19 Mani Lopez RN. Assessment The patient states feels the same. --00:15 07/02/19 Mani Lopez RN.PHYSICAL ASSESSMENTAmbulatory to room.GENERAL / NEURO / PSYCH: Alert. Oriented X 4. Appears in no acute distress.HEENT: Mucous membranes are pink.RESPIRATORY: Respirations not labored. Breath sounds within normal limits.GI / : The patient has had intermittent episodes of nausea. Emesis noted. Has vomited twice. Shehas diarrhea. This has occurred several times. Abdomen soft and nontender. Bowel sounds withinnormal limits.SKIN: Skin is warm and dry. --00:18 07/02/19 Mani Lopez RN.NURSING PROGRESS NOTESPatient gowned. Head of bed elevated. Reassurance given to the patient. Call light placed in reach ofpatient. Bed placed in lowest position. Brakes of bed on. Patient ready for evaluation- ED physiciannotified. --00:19 07/02/19 Mani Lopez RN 00:07/02/2019 Site #1 started via IV in the right antecubital space with an 20g angiocath, with aseptic technique and good blood return; one attempt. Blood drawn: rainbow set. Saline lock flushed with 10 mL saline. --00:37 07/02/19 Mani Lopez RN 00:37 07/02/2019 Started bag #1 1000 mL IV Fluids NS; bolus of 1000 mL then at 1000 mL/hr via site #1 via IV pump. Allergies verified and confirmed 5 rights. IV patency established. IV site checked: no pain, redness, or swelling. IV flushed thoroughly pre- and post-medication administration. Information reviewed with patient including reason for taking this medication, signs of allergic reaction and precautions. Verbalizes understanding. --00:37 07/02/19 Mani Lopez RN 00:07/02/2019 Zofran (Ondansetron HCl) IVP 8 mg given over 2 minute(s) via site #1. Allergies verified 3 Clinical Report - Nurses [facility] Emergency Department [address] [place] [address] Phone #: ext- [phone] 07/02/2019 00:07 Patient: GRACE CAI Sex: F : 1995 Age: 23y and confirmed 5 rights. IV patency established. IV site checked: no pain, redness, or swelling. IV flushed thoroughly pre- and post- medication administration. IVP given by RN. Information reviewed with patient including reason for taking this medication, signs of allergic reaction and precautions. Verbalizes understanding. --00:37 07/02/19 Mani Lopez RN 01:07/02/2019 PHENERGAN (Promethazine HCl) IVP 12.5 mg given over 1 minute(s) via site #1. Allergies verified and confirmed 5 rights. IV patency established. IV site checked: no pain, redness, or swelling. IV flushed thoroughly pre- and post-medication administration. IVP given by RN. Information reviewed with patient including reason for taking this medication, signs of allergic reaction, precautions and sedative warning. Verbalizes understanding. --01:27 07/02/19 Mani Lopez RN 01:37 07/02/2019 IV Fluids NS via IV site #1 Discontinued: bag #1 completed. Total amount infused: 1000 mL. IV patency established. IV site checked: no pain, redness, or swelling. IV flushed thoroughly. --01:42 07/02/19 Mani Lopez RN.DISPOSITION / DISCHARGE Departure time: :07/02/2019. Condition at departure: improved. No learning barriers present. Reviewed medication(s) side effects, precautions, dosing and course information. Prescription(s) sent electronically to pharmacy. Reviewed fever care instructions. Reviewed referral to family practice for followup. Reviewed bland diet and need for increased fluid intake. Work note given (2 days off). Patient verbalized understanding. Written instructions provided in Israeli. The patient was discharged home and accompanied by folding machine feeder. She left ambulatory and via private vehicle. [employer] driving. --:44 07/02/19 Mani Lopez RN 01:42 07/02/19. BP: 118/70 (regular adult cuff) taken on the left arm, via an automated monitor, while lying. MAP: 86. HR: 78 (regular, normal rate and strong). RR: 18 (regular and unlabored). O2 saturation: 98% on room air. Temp: 97.7 F (oral). Pain level now: 08/05. --01:44 07/02/19 Mani Lopez RN 01:39 07/02/2019 Site #1 removed upon discharge. Bandage applied. --:44 07/02/19 Mani Lopez RN.Locked/Released at 07/02/2019 01:45 by Mani Lopez RN Name Value Range Interpretation Code Description Data Natalia rce(s) Supporting Document(s) ID Date Data Source [id number] 07/02/2019 12:07:00 AM [facility] 1 Clinical Report - Physicians/Mid Levels [facility] Emergency Department [address] [place] [address] Phone #: ext- [phone] 07/02/2019 00:07 Patient: GRACE CAI Sex: F : 1995 Age: 23y Time Seen: 00:17 07/02/2019; initial patient contact. Arrived- By private vehicle. Historian- patient. Disposition decision: 01:33 07/02/2019.HISTORY OF PRESENT ILLNESS Chief Complaint: VOMITING and DIARRHEA. No recent travel. She has had moderate nausea, vomiting. The vomiting has occurred several times, mild, crampy, intermittent abdominal pain. The pain is described as located in the upper abdomen and epigastrium and associated with nausea, vomiting and diarrhea and contact with a sick individual. She has had diarrhea. This has occurred several times. It has been watery. No bloody or blood-tinged diarrhea. Has not recently been camping or on antibiotics. No history of possible bad food exposure. This started today 5 hours ago and is still present. It has been intermittent. The illness is described as moderate. Similar symptoms previously. None. Recent medical care: Not recently seen/assessed.REVIEW OF SYSTEMSNo fever, muscle aches, difficulty with urination, dark urine or headache. No dizziness, sore throat, cough,chest pain or difficulty breathing. No excessive urination, skin rash, jaundice, back pain or faintingepisodes. No blurred vision. Denies current . All other systems reviewed and are negative.PAST HISTORYSee nurses notes. Problems: Depression. Anxiety Reaction. Additional Surgeries: no known surgeries. Medications: VITD. Wellbutrin Oral 300mg, daily. Allergies: No Known Drug Allergy.SOCIAL HISTORYNever smoker. No alcohol use or drug use. 2 Clinical Report - Physicians/Mid Levels [facility] Emergency Department [address] [place] [address] Phone #: ext- [phone] 07/02/2019 00:07 ------ Patient: GRACE CAI Sex: F : 1995 Age: 23yADDITIONAL NOTESThe nursing notes have been reviewed with agreement regarding the chief complaint, HPI, ROS, PMH andpatient medications and allergies.PHYSICAL EXAMVital Signs: 07/02/2019 00:09 BP: sitting 113/76. MAP: 88. HR: 98. RR: 16. O2 saturation: 98% on roomair. Temp: 97.4 F. Pain level now: 10/05. Have been reviewed. Oxygen saturation normal.Appearance: Alert. Oriented X3. No acute distress.Eyes: Pupils equal, round and reactive to light. Eyes normal inspection.ENT: Ears normal. Nose normal. Pharynx normal.Neck: Normal inspection. Neck supple. No meningeal signs.CVS: Normal heart rate and rhythm. Heart sounds normal. Pulses normal.Respiratory: No respiratory distress. Painless inspiration. Breath sounds normal.Abdomen: Soft and nontender. Bowel sounds normal. No organomegaly. No mass. Femoral pulsesequal.Back: Normal inspection.Skin: Skin warm and dry. Normal skin color. No rash. Normal skin turgor.Extremities: Extremities exhibit normal ROM. No lower extremity edema.Neuro: Oriented X 3. No motor deficit. No sensory deficit. Reflexes normal.LABS, X-RAYS, AND EKGLaboratory Tests: Laboratory tests have been ordered, with results reviewed and considered in themedical decision making process. CBC w Diff: (LELAND: 07/02/2019 00:27) ( MsgRcvd 07/02/2019 00:36) Final results Test Result Flag Units (Reference) CBC W/AUTOMATED DIFF COMPLETE BLOOD COUNT WBC 12.0 H 10/uL (4.2 - 11.0) RBC 4.88 10/uL (4.20 - 5.40) HEMOGLOBIN 14.7 g/dL (12.0 - 16.0) HEMATOCRIT 44.5 % (37.0 - 47.0) MCV 91.2 fL (81.0 - 101) MCH 30.1 pg (27.0 - 34.0) MCHC 33.0 g/dL (31.0 - 36.0) RDW 11.9 % (11.5 - 14.5) PLATELETS 384 10/uL (150 - 450) MPV 10.1 fL (7.4 - 10.4) NEUT 85.6 H % (37.0 - 80.0) LYMPH 9.7 L % (25.0 - 40.0) MONO 3.9 % (3.0 - 8.0) EOS 0.4 % (0.0 - 7.0) BASO 0.2 % (0.0 - 2.5) %IG 0.2 H % (0.0 - 0.0) %NRBC 0.0 % (0.0 - 0.0) #NEUT 10.27 H 10/uL (2.00 - 6.90) #LYMPH 1.16 10/uL (0.60 - 3.40) #MONO 0.47 10/uL (0.00 - 0.90) #EOS 0.05 10/uL (0.00 - 0.70) #BASO 0.03 10/uL (0.00 - 0.20) #IG 0.03 10/uL (0.00 - 0.10) #NRBC 0.00 10/uL (0.00 - 0.00) MANUAL DIFF NOT INDICATED RBC MORPH NOT INDICATED 3 Clinical Report - Physicians/Mid Levels [facility] Emergency Department [address] [place] [address] Phone #: ext- [phone] 07/02/2019 00:07 Patient: GRACE CAI Sex: F : 1995 Age: 23y CMP: (LELAND: 07/02/2019 00:27) ( MsgRcvd 07/02/2019 01:18) Final results Test Result Flag Units (Reference) COMPREHENSIVE METABOLIC PANEL COMPREHENSIVE METABOLIC PANEL SODIUM 139 mEq/L (134 - 153) POTASSIUM 4.0 mEq/L (3.6 - 5.0) CHLORIDE 99 mEq/L (98 - 107) CO2 24 MEQ/L (22 - 30) GLUCOSE 100 MG/DL (65 - 110) BUN 8 MG/DL (7 - 21) CREATININE 0.7 MG/DL (0.7 - 1.5) BUN/CREAT 11 (8 - 27) TOTAL PROTEIN 8.2 G/DL (6.3 - 8.2) ALBUMIN 4.9 G/DL (3.9 - 5.0) GLOBULIN 3.3 H GM/DL (2.4 - 3.2) A/G RATIO 1.5 (0.8 - 2.0) CALCIUM 10.4 H MG/DL (8.4 - 10.2) TOTAL BILI <0.7 MG/DL (0.2 - 1.3) ALKALINE PHOS 70 U/L (38 - 126) SGOT/AST 14 U/L (5 - 40) SGPT/ALT 8 U/L (7 - 56) ANION GAP 16.0 mmol/L (8.0 - 16.0) AGE 23 yrs NON-AA GFR >60 mL/min AFR AMER GFR >60 mL/min Male GFR Interprentation 20-49 yrs >60 mL/min Normal 50-59 yrs >56 mL/min Normal 60-69 yrs >49 mL/min Normal 70-79yrs >42 mL/min Normal 80 and above >35 mL/min Normal Female GFR Interpretation 20-39 yrs >60 mL/min Normal 40-49 yrs >58 mL/min Normal 50-59 yrs >51 mL/min Normal 60-69 yrs >45 mL/min Normal 70-79 yrs >39 mL/min Normal 80 and above >32 mL/min Normal Lipase: (LELAND: 07/02/2019 00:27) ( MsgRcvd 07/02/2019 01:18) Final results Test Result Flag Units (Reference) LIPASE 23 U/L (13 - 60) Beta-HCG, Qual Serum: (LELAND: 07/02/2019 00:27) ( MsgRcvd 07/02/2019 00:53) Final results Test Result Flag Units (Reference) HCG SERUM QUAL NEGATIVE (NORMAL: NEGAT HCG SERUM QL REENTER NEGATIVE (NORMAL: NEGAT { KIT LOT # [id number] ){ KIT EXP DATE 08/20/20 ){ PROCEDURAL CONTROL VALID ).PROGRESS AND PROCEDURESCourse of Care: 01:24 07/02/19. workup all in and reviewed; pt doing better, still slightly nauseous,abdomen soft, no pain, will d/c soon. Patient counseled in person regarding the patient's stable condition, test results, diagnosis and need for follow-up. Patient agrees with plan of care. Disposition: Condition: good and stable. Discharge decision based on the following: patient's condition is stable; patient's condition is improved; patient is ambulatory; patient is active; patient drinking fluids; patient eating; patient's pain is controlled; 4 Clinical Report - Physicians/Mid Levels [facility] Emergency Department [address] [place] [address] Phone #: ext- [phone] 07/02/2019 00:07 Patient: GRACE CAI Sex: F : 1995 Age: 23y patient's exam is improved; no seriously abnormal test results; improving condition on repeat evaluation; social support is good; transportation is available; follow-up is available; clinical impression is consistent with outpatient treatment.CLINICAL IMPRESSION Acute norovirus gastroenteritis. No volume depletion, dehydration or hypotension.INSTRUCTIONS Alternate Tylenol (Acetaminophen) or Motrin (Ibuprofen) for fever, temperature greater than 102 degrees orally. Take according to label instructions. Return to work in two days. Drink plenty of fluids. Avoid alcohol and NSAIDS. NSAIDS include aspirin, ibuprofen (Advil) and naproxen (Aleve). Avoid fatty, fried/greasy, lactose-containing (such as milk, cheese and ice cream), salty and spicy foods. Warnings: Further evaluation is necessary. It is very important to follow up with a healthcare provider. GENERAL WARNINGS: Return or contact your physician immediately if your condition worsens or changes unexpectedly, if not improving as expected, or if other problems arise. SPECIFICALLY, return if you develop pain in the abdomen, pelvis, back or shoulder, fever, vomiting, the inability to keep fluids down, blood in vomitus, blood in diarrhea, fainting or lightheadedness. Your Current Medications: Your current home medications have been reviewed. CONTINUE TAKING THE FOLLOWING MEDICATIONS: VITD*. Wellbutrin Oral : 300mg daily. Prescription Medications: Zofran 4 mg tablet Take 1 tablet four times a day as needed for 4 days -- Dispense 16 tablet. Refills: 0. Substitution permitted. Pharmacy - [facility] [id number] ; [place] [address]. . Follow-up: Return to the emergency department as needed. Follow up with your healthcare provider in two days if not better. Call for an appointment. Reason for referral: evaluation and treatment. Summary of care provided to patient via paper. Understanding of the discharge instructions verbalized by patient. Expected course of illness, discharge instructions, activity level, diet, prescriptions x1, follow-up appointment and risks and benefits of treatment reviewed with patient and understanding verbalized. Agrees to plan of care. 5 Clinical Report - Physicians/Mid Levels [facility] Emergency Department [address] [place] [address] Phone #: ext- [phone] 07/02/2019 00:07 Patient: GRACE CAI Sex: F : 1995 Age: 23y(Electronically signed by Srinivas Ken M.D. 07/02/2019 03:05) Name Value Range Interpretation Code Description Data Natalia rce(s) Supporting Document(s) ID Date Data Source [id number] 07/02/2019 12:35:00 AM EST [facility] Name Value Range Interpretation Code Description Data Natalia rce(s) Supporting Document(s) CBC W/AUTOMATED DIFF [facility] COMPLETE BLOOD COUNT Leukocytes [#/volume] in Blood by Automated count 12.0 10^3/uL 4.2 - 11.0 H [facility] Erythrocytes [#/volume] in Blood by Automated count 4.88 10^6/uL 4. 20 - 5.40 [facility] Hemoglobin [Mass/volume] in Blood 14.7 g/dL 12.0 - 16.0 [facility] Hematocrit [Volume Fraction] of Blood by Automated count 44.5 % 3 7.0 - 47.0 [facility] Erythrocyte mean corpuscular volume [Entitic volume] by Auto mated count 91.2 fL 81.0 - 101 [facility] Erythrocyte mean corpuscular hemoglobin [Entitic mass] by Automated count 30.1 pg 27.0 - 34.0 [facility] Erythrocyte mean corpuscular hemoglobin concentration [Mass/volume] by Automated count 33.0 g/dL 31.0 - 36.0 [facility] Erythrocyte distribution width [Ratio] by Automated count 11.9 % 11.5 - 14.5 [facility] Platelets [#/volume] in Blood by Automated count 384 10^3/uL 150 - 45 0 [facility] Platelet mean volume [Entitic volume] in Blood by Automated count 10.1 fL 7.4 - 10.4 [facility] Neutrophils/100 leukocytes in Blood by Automated count 85.6 % 37. 0 - 80.0 H [facility] Lymphocytes/100 leukocytes in Blood by Manual count 9.7 % 25.0 - 40.0 L [facility] Monocytes/100 leukocytes in Blood by Automated count 3.9 % 3.0 - 8.0 [facility] Eosinophils/100 leukocytes in Blood by Automated count 0.4 % 0.0 - 7.0 [facility] Basophils/100 leukocytes in Blood by Automated count 0.2 % 0.0 - 2.5 [facility] %IG 0.2 % 0.0 - 0.0 [facility] % 0.0 - 0.0 [facility] Neutrophils [#/volume] in Blood by Automated count 10.27 10^3/uL 2. 00 - 6.90 H [facility] Lymphocytes [#/volume] in Blood by Automated count 1.16 10^3/uL 0.60 - 3.40 [facility] Monocytes [#/volume] in Blood by Automated count 0.47 10^3/uL 0.00 - 0.90 [facility] Eosinophils [#/volume] in Blood by Automated count 0.05 10^3/uL 0.00 - 0.70 [facility] Basophils [#/volume] in Blood by Automated count 0.03 10^3/uL 0.00 - 0.20 [facility] #IG 0.03 10^3/uL 0.00 - 0.10 [facility]ital #NRBC 0.00 10^3/uL 0.00 - 0.00 [facility] MANUAL DIFF NOT INDICATED [facility] RBC MORPH NOT INDICATED [facility] spital ID Date Data Source [id number] 07/02/2019 12:52:00 AM EST [facility] Name Value Range Interpretation Code Description Data Natalia rce(s) Supporting Document(s) HCG SERUM QUAL NEGATIVE NORMAL: NEGATIVE [facility] HCG SERUM QL REENTER NEGATIVE NORMAL: NEGATIVE [facility] { KIT LOT # [id number] ){ KIT EXP DATE 08/20/20 ){ PROCEDURAL CONTROL VALID ) ID Date Data Source [id number] 07/02/2019 01:18:00 AM [facility] Name Value Range Interpretation Code Description Data Natalia rce(s) Supporting Document(s) COMPREHENSIVE METABOLIC PANEL [facility] COMPREHENSIVE METABOLIC PANEL Sodium [Moles/volume] in Serum or Plasma 139 mEq/L 134 - 153 [facility] Potassium [Moles/volume] in Serum or Plasma 4.0 mEq/L 3.6 - 5.0 [facility] Chloride [Moles/volume] in Serum or Plasma 99 mEq/L 98 - 107 [facility] Carbon dioxide, total [Moles/volume] in Serum or Plasma 24 MEQ/L 22 - 30 [facility] Glucose [Mass/volume] in Serum or Plasma 100 MG/DL 65 - 110 [facility] BUN 8 MG/DL 7 - 21 [facility] al Creatinine [Mass/volume] in Serum or Plasma 0.7 MG/DL 0.7 - 1.5 [facility] BUN/CREAT 11 8 - 27 [facility] Protein [Mass/volume] in Serum or Plasma 8.2 G/DL 6.3 - 8.2 [facility] Albumin [Mass/volume] in Serum or Plasma 4.9 G/DL 3.9 - 5.0 [facility] Globulin [Mass/volume] in Serum by calculation 3.3 GM/DL 2.4 - 3.2 H [facility] A/G RATIO 1.5 0.8 - 2.0 [facility] Calcium [Mass/volume] in Serum or Plasma 10.4 MG/DL 8.4 - 10.2 H [facility] Bilirubin.total [Mass/volume] in Serum or Plasma <0.7 MG/DL 0.2 - 1.3 [facility] Alkaline phosphatase [Enzymatic activity/volume] in Serum or Plasma 70 U/L 38 - 126 [facility] Aspartate aminotransferase [Enzymatic activity/volume] in Serum or Plasma 14 U/L 5 - 40 [facility] Alanine aminotransferase [Enzymatic activity/volume] in Seru m or Plasma 8 U/L 7 - 56 [facility] Anion gap 3 in Serum or Plasma 16.0 mmol/L 8.0 - 16.0 [facility] AGE 23 yrs [facility] al NON-AA GFR >60 mL/min [facility] ital AFR AMER GFR >60 mL/min [facility] spital Male GFR In terprentation 20-49 yrs >60 mL/min Normal 50-59 yrs >56 mL/min Normal 60-69 yrs >49 mL/min Normal 70-79yrs >42 mL/min Normal 80 and above >35 mL/min Normal Female GFR Interpretation 20-39 yrs >60 mL/min Normal 40-49 yrs >58 mL/min Normal 50-59 yrs >51 mL/min Normal 60-69 yrs >45 mL/min Normal 70-79 yrs >39 mL/min Normal 80 and above >32 mL/min Normal ID Date Data Source [id number] 07/02/2019 01:18:00 AM EST [facility] Name Value Range Interpretation Code Description Data Natalia rce(s) Supporting Document(s) Lipase [Enzymatic activity/volume] in Serum or Plasma 23 U/L 13 - 60 [facility] Procedure Vital Signs ID Date Data Source UNK Name Value Range Interpretation Code Description Data Source(s) Diastolic blood pressure 74 mm[Hg] 74 mm[Hg] eCW1 ([facility]) Systolic blood pressure 100 mm[Hg] 100 mm[Hg] e CW1 ([facility]) Body mass index (BMI) [Ratio] 24.56 kg/m2 24.56 kg/m2 eCW1 ([facility]) Body height 61 [in_us] 61 [in_us] eCW1 ([facility]) Body weight Measured 130 [lb_av] 130 [lb_av] eC W1 ([facility])
[2020-06-09] MEDS ORDERED: NS 1,000 ML IV ONE (08:45)
--- OUTSIDE RECORDS SUMMARY | 2020-06-09 08:58 | CCD ---
Author Author [facility] Organization [facility] Address Unknown Phone Unavailable Care Team Providers Care Dispensing Optician Apprentice Name Role Phone NON, PHYSICIAN STAFF Unavailable [...] is protected by Article 27-F of the [place] State Public Health law. If you continue you may have access to information: Regarding HIV / AIDS; Provided by facilities licensed or operated by the [facility] Office of Mental Health; or Provided by the [facility] Office for People With Developmental Disabilities. If such information is present, then the following [facility] mandated warning applies: This information has been [...] law may result in a fine or group home sentence or both. A general authorization for the release of medical or other information is NOT sufficient authorization for further disc losure. Encounters Encounter Providers Location Date Indications Data Source(s ) Emergency Attender: SRINIVAS Galvansuant: STAFF NON 07/02/2019 12:07:00 AM EST - 07/02/2019 01:45:[address] [facility] ital Patient discharged. [address] [phone] 06/10/2019 12:00:00 AM EST eCW1 ([facility]) Insurance Providers Payer name Policy type / Coverage type Policy ID Covered green party ID Covered green party's relationship to thomas Policy Thomas Plan Information [facility] ACTIVE DUTY [id number] SP [id number] [employer] [facility] REG O [id number] S [id number] [facility] HUMANA - O/P [id number] 18 [id number] [facility] ACTIVE DUTY [id number] SP [id number] Problems, Conditions, and Diagnoses Code Display Name Description Problem Type Effective Dates Data Source(s) E28.2 [id number] Polycystic ovarian syndrome Problem 06/10/19 20 12:00:00 AM EST eCW1 ([facility]) A0811 Acute gastroenteropathy due to [place] a gent Acute gastroenteropathy due to [place] agent Diagnosis 07/02/2019 12:07:00 AM [facility] R197 Diarrhea, unspecified Diarrhea, unspecified Diagnosis 07/02/2019 12:07:00 AM [facility] Results ID Date Data Source [id number] 07/02/2019 12:07:00 AM EST [facility] 1 OrderSheet [facility] Emergency Department [address] [place] [address] Phone #: ext- [phone] 07/02/2019 00:07 Patient: GRACE CAI Sex: F [...] (NOW x1, HIGH M.D.;ALERTMEDICATION)GENERAL ORDERS 2 OrderSheet [facility] Emergency Department [address] [place] [address] Phone #: ext- [phone] 07/02/2019 00:07 --------- Patient: GRACE CAI Sex: [...] rce(s) Supporting Document(s) ID Date Data Source [id number] 07/02/2019 12:07:00 AM EST [facility] 1 Medication Reconciliation Report [facility] Emergency Department [address] [place] [address] Phone #: ext- [phone] 07/02/2019 00:07 Patient: GRACE CAI Sex: F [...] Dispense 16 tablet. Refills: 0.Substitution permitted.[facility] [id number] ; [place] [address]. . -- Srinivas Ken M.D. Name Value Range Interpretation Code Description Data Natalia rce(s) Supporting Document(s) ID Date Data Source [id number] 07/02/2019 12:07:00 AM [facility] 1 Medication Administration Record [facility] Emergency Department [address] [place] [address] Phone #: ext- [phone] 07/02/2019 00:07 Patient: GRACE CAI Sex: F : 1995 Age: 23yWeight: 61.2 kgHeight/Length: 61 inBMI: 25.5ALLERGIES: No Known Drug Allergy Date/Time Medication Administered Medication OrderedStart NS [IV] NS IV 1000 mL Bolus: : Bolus [id number] 07/02/2019 Dose: IV Fluids mL (X1)Mani Lopez RN Rate: 1000 mL/hr---- Bolus: 1000 mLStop Dispensed: 1000 mL bag01:37 07/02/2019 Site: #1 right ACSmartina Lopez RNGiven ZOFRAN [IVP] (ONDANSETRON HCL) Zofran IVP 8 mg00:37 07/02/2019 Dose: 8 mg IVPSteven EDWARD Lopez Site: #1 right ACGiven PHENERGAN [IVP] (PROMETHAZINE Phenergan 12.5 mg IVP X1 dose:01:27 07/02/2019 HCL) 12.5 mg (NOW x1, HIGH ALERTStevalexander Lopez RN Dose: 12.5 mg IVP MEDICATION) Site: #1 right AC Name Value Range Interpretation Code Description Data Natalia rce(s) Supporting Document(s) ID Date Data Source [id number] 07/02/2019 12:07:00 AM EST [facility] 1 General Instructions [facility] Emergency Department [address] [place] [address] Phone #: ext- [phone] 07/02/2019 00:07 Patient: [...] Dispense 16 tablet. Refills: 0.Substitution permitted.Pharmacy - [facility] - [address] ; [place] [address]. .Follow-up:Return to the emergency department as needed. [...] of care. ADDITIONAL INFORMATION 2 General Instructions [facility] Emergency Department [address] [place] [address] Phone #: ext- [phone] 07/02/2019 00:07 Patient: GRACE CAI Sex: F [...] Loss of bowel control 3 General Instructions [facility] Emergency Department [address] [place] [address] Phone #: ext- [phone] 07/02/2019 00:07 Patient: [...] with soap and water or use alcohol-based furniture upholstery mechanic to prevent the spread of infection. Wash your hands after touching anyone who is sick. Wash your hands or use alcohol-based furniture upholstery mechanic after using the toilet and before meals. [...] Keep uncooked meats away from cooked and juyum-iw-tik foods.MedicineYou may use acetaminophen or NSAID medicines [...] if you are vomiting. 4 General Instructions [facility] Emergency Department [address] [place] [address] Phone #: ext- [phone] 07/02/2019 00:07 Patient: [...] your provider if you don't get better hours or if diarrhea lasts more than a week. Also follow up if you are unable to keep down liquidsand get dehydrated. If a stool (diarrhea) sample was taken, call as directed for the results. 5 General Instructions [facility] Emergency Department [address] [place] [address] Phone #: ext- [phone] 07/02/2019 00:07 Patient: [...] directed by your healthcare provider Dawood bashir [phone] [employer]. [address] [place] [address], [place] [address]. All rights reserved. This information is not intended as asubstitute for professional medical care. Always follow your healthcare professional's instructions.Fever Control (Adult)A fever is a normal reaction of your body to an illness. The temperature itself usually isn't harmful. Itactually helps your body fight infections. You don't need to treat a fever unless you feel veryuncomfortable. 6 General Instructions [facility] Emergency Department [address] [place] [address] Phone #: ext- [phone] 07/02/2019 00:07 Patient: [...] any of these occur: 7 General Instructions [facility] Emergency Department [address] [place] [address] Phone #: ext- [phone] 07/02/2019 00:07 Patient: [...] place where infectious diseases arecommon. 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 This usually goes away without aproblem. But, some places have more serious diseases. Fever with certain other symptoms maymean you have a serious illness. Symptoms to watch for include diarrhea, skin rashes, insect bites,and skin boils, or infections. Your provider may ask you: What you did on your trip 8 General I nstructions [facility] Emergency Department [address] [place] [address] Phone #: ext- [phone] 07/02/2019 00:07 Patient: GRACE CAI Sex: F : 1995 Age: 23y How long you were there Where you stayed (hotel, teller house, tent) What you ate and drank If you were bitten by insects or other bugs If you swam in freshwater If you had sex or got a tattoo or piercing while you were thereCheck the [facility] to get more information about specific infectious diseases in the areas you havetraveled. [id number] [employer] [place] [address]. All rights reserved. This information is not intended as asubstitute for professional medical care. Always follow your healthcare professional's instructions. You have been given the following additional information: Gastroenteritis, Viral (Adult) Fever Control (Adult) Return to work in two days.(Electronically signed by Srinivas Ken M.D. 07/02/2019 03:05) Name Value Range Interpretation Code Description Data Natalia rce(s) Supporting Document(s) ID Date Data Source [id number] 07/02/2019 12:07:00 AM EST [facility] 1 Clinical Report - Nurses [facility] Emergency Department [address] [place] [address] Phone #: ext- [phone] 07/02/2019 00:07 Patient: [...] occurred several times. It has been watery.Treatment ICER HAND:None.SEPSIS SCREEN: NEGATIVE. --00:15 07/02/19 Mani Lopez RN00:07/02/19. BP: 113/76 (regular adult cuff) taken on the right arm, via an automated monitor, whilesitting. MAP: 88. HR: 98 (regular and normal rate). RR: 16 (regular, unlabored and normal). O2 saturation:98% on room air. Temp: 97.4 F (oral). Pain level now: 5/10. --00:15 07/02/19 Mani Lopez RN.Weight: 61.2 kg stated. Height/Length: 61 inches Per Patient. BMI: 25.5. --00:13 07/02/19 Mani Lopez RN.MedicationsWellbutrin Oral 300mg, daily. --00:11 07/02/19 Mani Lopez RN VITD. --00:11 07/02/19 Mani Lopez RN.AllergiesNo Known Drug Allergy. --00:11 [...] declined. She has not traveled outside the 2 Clinical Report - [facility] Emergency Department [address] [place] [address] Phone #: ext- [phone] 07/02/2019 00:07 Patient: [...] Allergies verified 3 Clinical Report - Nurses [facility] Emergency Department [address] [place] [address] Phone #: ext- [phone] 07/02/2019 00:07 Patient: [...] Patient verbalized understanding. Written instructions provided in Hungarian. The patient was discharged home and accompanied by handy man. She left ambulatory and via private vehicle. Features Reporter driving. --:44 07/02/19 Mani Lopez RN 01:42 [...] rce(s) Supporting Document(s) ID Date Data Source [id number] 07/02/2019 12:07:00 AM EST [facility] 1 Clinical Report - Physicians/Mid Levels [facility] Emergency Department [address] [place] [address] Phone #: ext- [phone] 07/02/2019 00:07 Patient: [...] use. 2 Clinical Report - Physicians/Mid Levels [facility] Emergency Department [address] [place] [address] Phone #: ext- [phone] 07/02/2019 00:07 ------ [...] INDICATED 3 Clinical Report - Physicians/Mid Levels [facility] Emergency Department [address] [place] [address] Phone #: ext- [phone] 07/02/2019 00:07 Patient: [...] NEGATIVE (NORMAL: NEGAT { KIT LOT # [id number] ){ KIT EXP DATE 08/20/20 ){ PROCEDURAL [...] controlled; 4 Clinical Report - Physicians/Mid Levels [facility] Emergency Department [address] [place] [address] Phone #: ext- [phone] 07/02/2019 00:07 Patient: [...] tablet. Refills: 0. Substitution permitted. Pharmacy - [facility] [address] ; [place] [address]. . Follow-up: Return to the emergency department [...] care. 5 Clinical Report - Physicians/Mid Levels [facility] Emergency Department [address] [place] [address] Phone #: ext- [phone] 07/02/2019 00:07 Patient: GRACE CAI Sex: F : 1995 Age: 23y(Electronically signed by Srinivas Ken M.D. 07/02/2019 03:05) Name Value Range Interpretation Code Description Data Natalia rce(s) Supporting Document(s) ID Date Data Source [id number] 07/02/2019 12:35:00 AM EST [facility] Name Value Range Interpretation Code Description Data Natalia rce(s) Supporting Document(s) CBC W/AUTOMATED DIFF [facility] COMPLETE BLOOD COUNT Leukocytes [#/volume] in Blood by Automated count 12.0 10^3/uL 4.2 - 11.0 H [facility] Erythrocytes [#/volume] in Blood by Automated count 4.88 10^6/uL 4. 20 - 5.40 [facility] Hemoglobin [Mass/volume] in Blood 14.7 g/dL 12.0 - 16.0 [facility] Hematocrit [Volume Fraction] of Blood by Automated count 44.5 % 3 7.0 - 47.0 [facility] Erythrocyte mean corpuscular volume [Entitic volume] by Auto mated count 91.2 fL 81.0 - 101 [facility] Erythrocyte mean corpuscular hemoglobin [Entitic mass] by Automated count 30.1 pg 27.0 - 34.0 [facility] Erythrocyte mean corpuscular hemoglobin concentration [Mass/volume] by Automated count 33.0 g/dL 31.0 - 36.0 [facility] Erythrocyte distribution width [Ratio] by Automated count 11.9 % 11.5 - 14.5 [facility] Platelets [#/volume] in Blood by Automated count 384 10^3/uL 150 - 45 0 [facility] Platelet mean volume [Entitic volume] in Blood by Automated count 10.1 fL 7.4 - 10.4 [facility] Neutrophils/100 leukocytes in Blood by Automated count 85.6 % 37. 0 - 80.0 H [facility] Lymphocytes/100 leukocytes in Blood by Manual count 9.7 % 25.0 - 40.0 L [facility] Monocytes/100 leukocytes in Blood by Automated count 3.9 % 3.0 - 8.0 [facility] Eosinophils/100 leukocytes in Blood by Automated count 0.4 % 0.0 - 7.0 [facility] Basophils/100 leukocytes in Blood by Automated count 0.2 % 0.0 - 2.5 [facility] %IG 0.2 % 0.0 - 0.0 [facility] %NRBC 0.0 % 0.0 - 0.0 [facility] Neutrophils [#/volume] in Blood by Automated count 10.27 10^3/uL 2. 00 - 6.90 H [facility] Lymphocytes [#/volume] in Blood by Automated count 1.16 10^3/uL 0.60 - 3.40 [facility] Monocytes [#/volume] in Blood by Automated count 0.47 10^3/uL 0.00 - 0.90 [facility] Eosinophils [#/volume] in Blood by Automated count 0.05 10^3/uL 0.00 - 0.70 [facility] Basophils [#/volume] in Blood by Automated count 0.03 10^3/uL 0.00 - 0.20 [facility] #IG 0.03 10^3/uL 0.00 - 0.10 [facility] ospital #NRBC 0.00 10^3/uL 0.00 - 0.00 [facility] o[facility] MANUAL DIFF NOT INDICATED [facility] RBC MORPH NOT INDICATED [facility] spital ID Date Data Source [id number] 07/02/2019 12:52:00 AM EST [facility] Name Value Range Interpretation Code Description Data Natalia rce(s) Supporting Document(s) HCG SERUM QUAL NEGATIVE NORMAL: NEGATIVE [facility] HCG SERUM QL REENTER NEGATIVE NORMAL: NEGATIVE [facility] { KIT LOT # [id number] ){ KIT EXP DATE 08/20/20 ){ PROCEDURAL CONTROL VALID ) ID Date Data Source [id number] 07/02/2019 01:18:00 AM [facility] Name Value Range Interpretation Code Description Data Natalia rce(s) Supporting Document(s) COMPREHENSIVE METABOLIC PANEL [facility] COMPREHENSIVE METABOLIC PANEL Sodium [Moles/volume] in Serum or Plasma 139 mEq/L 134 - 153 [facility] Potassium [Moles/volume] in Serum or Plasma 4.0 mEq/L 3.6 - 5.0 [facility] Chloride [Moles/volume] in Serum or Plasma 99 mEq/L 98 - 107 [facility] Carbon dioxide, total [Moles/volume] in Serum or Plasma 24 MEQ/L 22 - 30 [facility] Glucose [Mass/volume] in Serum or Plasma 100 MG/DL 65 - 110 [facility] BUN 8 MG/DL 7 - 21 [facility] al Creatinine [Mass/volume] in Serum or Plasma 0.7 MG/DL 0.7 - 1.5 [facility] BUN/CREAT 11 8 - 27 [facility] Protein [Mass/volume] in Serum or Plasma 8.2 G/DL 6.3 - 8.2 [facility] Albumin [Mass/volume] in Serum or Plasma 4.9 G/DL 3.9 - 5.0 [facility] Globulin [Mass/volume] in Serum by calculation 3.3 GM/DL 2.4 - 3.2 H [facility] A/G RATIO 1.5 0.8 - 2.0 [facility] Calcium [Mass/volume] in Serum or Plasma 10.4 MG/DL 8.4 - 10.2 H [facility] Bilirubin.total [Mass/volume] in Serum or Plasma <0.7 MG/DL 0.2 - 1.3 [facility] Alkaline phosphatase [Enzymatic activity/volume] in Serum or Plasma 70 U/L 38 - 126 [facility] Aspartate aminotransferase [Enzymatic activity/volume] in Serum or Plasma 14 U/L 5 - 40 [facility] Alanine aminotransferase [Enzymatic activity/volume] in Seru m or Plasma 8 U/L 7 - 56 [facility] Anion gap 3 in Serum or Plasma 16.0 mmol/L 8.0 - 16.0 [facility] AGE 23 yrs [facility] al NON-AA GFR >60 mL/min [facility] ital AFR AMER GFR >60 mL/min [facility] spital Male GFR In terprentation 20-49 [...] >32 mL/min Normal ID Date Data Source [id number] 07/02/2019 01:18:00 AM EST [facility] Name Value Range Interpretation Code Description Data Natalia rce(s) Supporting Document(s) Lipase [Enzymatic activity/volume] in Serum or Plasma 23 U/L 13 - 60 [facility] Procedure Vital Signs ID Date Data Source UNK Name Value Range Interpretation Code Description Data Source(s) Diastolic blood pressure 74 mm[Hg] 74 mm[Hg] eCW1 ([facility]) Systolic blood pressure 100 mm[Hg] 100 mm[Hg] e CW1 ([facility]) Body mass index (BMI) [Ratio] 24.56 kg/m2 24.56 kg/m2 eCW1 ([facility]) Body height 61 [in_us] 61 [in_us] eCW1 ([facility]) Body weight Measured 130 [lb_av] 130 [lb_av] eC W1 ([facility])
[2020-06-09 09:04] LABS: BASO % 0.3 % (0.0-1.0); EOS # 0.1 10^3/uL (0.0-0.5); EOS % 0.7 % (0.0-3.0); HEMATOCRIT 34.8 % (36.0-47.0); HEMOGLOBIN 11.7 g/dl (12.0-15.5); LYMPH # 1.1 10^3/uL (1.5-5.0); LYMPH % 15.2 % (24.0-44.0); MEAN CORPUSCULAR HEMOGLOBIN 29.8 pg (27.0-33.0); MEAN CORPUSCULAR HGB CONC 33.6 g/dl (32.0-36.5); MEAN CORPUSCULAR VOLUME 88.8 fl (80.0-96.0); MONO # 0.5 10^3/uL (0.0-0.8); MONO % 6.7 % (0.0-5.0); NEUTROPHILS # 5.3 10^3/uL (1.5-8.5); NEUTROPHILS % 76.5 % (36.0-66.0); PLATELET COUNT, AUTOMATED 275 10^3/uL (150-450); RED BLOOD COUNT 3.92 10^6/uL (4.00-5.40)
[2020-06-09] MEDS ORDERED: METOCLOPRAMIDE INJ 10MG/2ML VIAL (J2765 PER 1) IV ONE (09:15)
[2020-06-09 09:26] LABS: ALBUMIN 3.3 GM/DL (3.2-5.2); ALT/SGPT 14 U/L (12-78); BILIRUBIN,DIRECT 0.1 MG/DL (0.0-0.2); BILIRUBIN,TOTAL 0.5 MG/DL (0.2-1.0); BLOOD UREA NITROGEN 3 MG/DL (7-18); CALCIUM LEVEL 8.9 MG/DL (8.5-10.1); CARBON DIOXIDE LEVEL 24 MEQ/L (21-32); CHLORIDE LEVEL 106 MEQ/L (98-107); CREATININE FOR GFR 0.45 MG/DL (0.55-1.30); GLOMERULAR FILTRATION RATE > 60.0 (>60); GLUCOSE, FASTING 87 MG/DL (70-100); LIPASE 88 U/L (73-393); POTASSIUM SERUM 3.5 MEQ/L (3.5-5.1); SODIUM LEVEL 138 MEQ/L (136-145); TOTAL PROTEIN 6.7 GM/DL (6.4-8.2)
[2020-06-09] MEDS ORDERED: ONDANSETRON 4MG/2ML VIAL IV ONE (10:00)
[2020-06-09 11:29] VITALS: BP 92/53
== END 2020-06-09 11:43 | disposition home or self-care (01) ==
LOC: M ED 08:07
DX: O21.9 Vomiting of pregnancy, unspecified (principal)
CPT/HCPCS: 36415; 80048; 80076; 83690; 85025; 96361; 96374; 96375; 99284; J2405; J2765

== ENCOUNTER 2020-07-27 10:06 | Outpatient (CLI) | payer OTHER ==
[~2020-07-27] VITALS: Ht 154.9 cm; Wt 63.7 kg
[2020-07-27 10:23] VITALS: BP 104/63
--- NOTE | 2020-07-27 10:34 | IPNPDOC ---
Obstetrical Progress Note Date of Service Jul 27, 2020 Subjective 24 yo at 23w2d with CARLTON of 21 NOV 2020 presents to L&D with complaints of decreased movement today. She reports that she has off and on movement and even after drinking sweet juice, she has not felt much movement. Chart reviewed and anatomy US reveals anterior placenta. She denies contractions, leaking of fluid, and vaginal bleeding. Assessment Heart Rate (FHR): 145 (by doppler) Assessment and Plan Age: 24 : 1 Term: 0 Pre-term: 0 Abortions: 0 Livin EGA at Admission: 23 (+2) Weeks & Days 23w2d Status: Reassuring Anticipate: Other (Discharge to home, certified not in labor) Additional Comments Reassured patient of status Discussed anterior placenta Recommended to stay hydrated with 3-4 liters of water per day PTL precautions discussed Recommended to keep all appointments with FtShannon Barrera BOARDING MOTHER Return to L&D if symptoms worsen or persist. 10 minutes of time spent with patient for assessment and discuss plan for discharge. BASIA MACIAS CNM Jul 27, 2020 10:34
== END 2020-07-27 10:34 | disposition home or self-care (01) ==
LOC: M LDO 10:06
PROVIDERS: ATTEND Registered Nurse Maternal Newborn
DX: O36.8120 Decreased fetal movements, second trimester, not applicable or unspecified (principal); O43.892 Other placental disorders, second trimester; Z3A.23 23 weeks gestation of pregnancy
CPT/HCPCS: G0378; G0463

== ENCOUNTER 2020-09-09 16:54 | Outpatient (CLI) | payer OTHER ==
[~2020-09-09] VITALS: Ht 154.9 cm; Wt 67.7 kg
[2020-09-09 17:02] VITALS: BP 117/60
[2020-09-09 17:10] VITALS: BP 117/60
--- NOTE | 2020-09-09 18:19 | IPNPDOC ---
Obstetrical Progress Note Date of Service Sep 09, 2020 Subjective Ms. Singer is a 24yo at 29+4wk gestation presenting for a ROM check. She reports that 30 minutes ago she had a trickle of odorless clear fluid. She denied VB, decreased fm, contractions. Assessment Heart Rate (FHR): 140 Variability: Moderate Accelerations: Positive Decelerations: None Heart Rate Tracing: Category I Tocometer Contractions: No Sterile Vaginal Examination Dilation: None Station: -3 Cervical Position: Posterior Postion/Presentation: Cephalic presentation Assessment and Plan Additional Comments Ms. Singer is a 24yo at 29+4wk gestation presenting for a ROM check. She reports that 30 minutes ago she had a trickle of odorless clear fluid. VS normal. CAT I tracing. No contractions on toco. C/T/H cervix. Nitrazine, pooling, ferning negative. JULIA 11.7cm. Cephalic by US +FM. RAZA/WP negative. UA will a small amount of blood, will await culture. ROM unlikely at this time. Provided with routine OB return precautions. Patient to follow up at next [facility]. Will call with abnormal UA. ABNER CAO DO Sep 09, 2020 18:19
== END 2020-09-09 18:30 | disposition home or self-care (01) ==
LOC: M LDO 16:54
PROVIDERS: ATTEND Obstetrics & Gynecology
DX: O47.03 False labor before 37 completed weeks of gestation, third trimester (principal); Z3A.29 29 weeks gestation of pregnancy
CPT/HCPCS: 81001; G0378; G0463

== ENCOUNTER 2021-03-29 18:34 | Emergency (ER) | payer OTHER ==
[~2021-03-29] VITALS: Ht 154.9 cm; Wt 73.3 kg
--- OUTSIDE RECORDS SUMMARY | 2021-03-29 18:39 | CCD ---
Author Author [facility] Organization [facility] Address Unknown Phone Unavailable Support Name Relationship Address Phone PAUL FUENTES Next Of Kin [address] [place], [place] [phone] ROC MUIR Next Of Kin [address] [place] [address] PAUL DOHERTY Next Of Kin [address] [place] [address] PageStitch Next Of Kin [address] [place] [address] ROLLY CAI Next Of Kin [address] [place] [address] PAUL DOHERTY ECON Unknown Unavailable Re-disclosure Warning The records that you [...] is protected by Article 27-F of the [facility] Public Health law. If you continue you may have access to information: Regarding HIV / AIDS; Provided by facilities licensed or operated by the [facility] Office of Mental Health; or Provided by the [facility] Office for People With Developmental Disabilities. If such information is present, then the following [facility] mandated warning applies: This information has [...] law may result in a fine or mcfp sentence or both. A general authorization for the release of medical or other information is NOT sufficient authorization for further disc losure. Immunizations Vaccine Date Status Description Data Source(s) COVID-19 VACCINE Pfizer 03/09/2021 12:00:00 AM EDT completed [facility] Vaccine Series Complete: NOThis Data was Submitted to [facility]. Medications No Information Insurance Providers Payer name Policy type / Coverage type Policy ID Covered alliance party ID Covered alliance party's relationship to thomas Policy Thomas Plan Information [facility] ACTIVE DUTY [id number] SP [id number] [facility] ACTIVE DUTY [id number] SP [id number] [employer] O [id number] S [id number] [facility] HUMANA - O/P [id number] 18 [id number] Problems, Conditions, and Diagnoses No Information Surgeries/Procedures No Information Results ID Date Data Source [id number] 11/22/2020 11:28:00 PM EDT [facility] Name Value Range Interpretation Code Description Data Natalia rce(s) Supporting Document(s) SARS-CoV-2 RNA Resp Ql SAMSON+probe NOT DETECTED [facility] This lab was ordered by [facility] [place] and reported by [facility]. ID Date Data Source [id number] 08/29/2020 09:50:00 AM EDT [facility] Name Value Range Interpretation Code Description Data Natalia rce(s) Supporting Document(s) SARS-COV-2 RNA NPH QL SAMSON+NON-PROBE NOT DETECTED [facility] This lab was ordered by [facility] and reported by [facility]. Procedure Social History No Information
[2021-03-29] MEDS ORDERED: BACT800T5 PO (22:33)
[2021-03-29] MEDS ORDERED: BACTRIM 160MG/800MG DS TAB PO ONE (22:35)
--- OUTSIDE RECORDS SUMMARY | 2021-03-29 22:44 | CCD ---
Author Author [facility] Organization [facility] Address Unknown Phone Unavailable Support Name Relationship Address Phone PAUL FUENTES Next Of Kin [address] [place], [place] [id number] ROC MUIR Next Of Kin [address] [place] [address] PAUL DOHERTY Next Of [address] [place] [address] [employer] Render Next Of Kin [address] [place] [address] ROLLY CAI Next Of Kin [address] [place] [address] PAUL DOHRETY ECON Unknown Unavailable Re-disclosure Warning The records [...] is protected by Article 27-F of the [facility] Public Health law. If you continue you may have access to information: Regarding HIV / AIDS; Provided by facilities licensed or operated by the [facility] Office of Mental Health; or Provided by the [facility] Office for People With Developmental Disabilities. If such information is present, then the following [facility] mandated warning applies: This information has [...] law may result in a fine or halfway sentence or both. A general authorization for the release of medical or other information is NOT sufficient authorization for further disc losure. Immunizations Vaccine Date Status Description Data Source(s) COVID-19 VACCINE Pfizer 03/09/2021 12:00:00 AM EDT completed [facility] Vaccine Series Complete: NOThis Data was Submitted to [facility] Via [facility]. Medications No Information Insurance Providers Payer name Policy type / Coverage type Policy ID Covered alliance party ID Covered alliance party's relationship to thomas Policy Thomas Plan Information [facility] ACTIVE DUTY [id number] SP [id number] [facility] [employer] [id number] SP [id number] [employer] [place] [id number] S [id number] [facility] [employer] - O/P [id number] 18 [id number] Problems, Conditions, and Diagnoses No Information Surgeries/Procedures No Information Results ID Date Data Source [id number] 11/22/2020 11:28:00 PM EDT [facility] Name Value Range Interpretation Code Description Data Natalia rce(s) Supporting Document(s) SARS-CoV-2 RNA Resp Ql SAMSON+probe NOT DETECTED [facility] This lab was ordered by [facility] and reported by [facility]. ID Date Data Source [id number] 08/29/2020 09:50:00 AM EDT [facility] Name Value Range Interpretation Code Description Data Natalia rce(s) Supporting Document(s) SARS-COV-2 RNA NPH QL SAMSON+NON-PROBE NOT DETECTED [facility] This lab was ordered by [employer] [facility] and reported by [facility]. Procedure Social History No Information
[2021-03-29 22:47] VITALS: BP 111/69
== END 2021-03-29 23:24 | disposition home or self-care (01) ==
LOC: M ED 18:34
DX: L02.412 Cutaneous abscess of left axilla (principal)

== ENCOUNTER 2022-02-21 08:10 | Day surgery (SDC) | payer OTHER ==
[~2022-02-21] VITALS: Ht 154.9 cm; Wt 72.3 kg
[~2022-02-21 08:10] MED LIST changes: +BIRTH CONTROL PATCH TOP
[2022-02-21] MEDS ORDERED: LR 1,000 ML IV SCH ×3 (08:40→11:40)
[2022-02-21] MEDS ORDERED: propofoL 200 MG/20 ML VIAL As Ordered ONE (09:15)
[2022-02-21] MEDS ORDERED: dexameTHASONE 4 MG/ML 1ML VIAL (J1100 PER 1MG) As Ordered ONE (09:15)
[2022-02-21] MEDS ORDERED: ONDANSETRON 4MG 2ML VIAL As Ordered ONE (09:15)
[2022-02-21] MEDS ORDERED: MIDAZOLAM INJ 2MG/2ML VIAL (J2250 PER 1MG) As Ordered ONE (09:15)
[2022-02-21] MEDS ORDERED: LIDOCAINE 2% 100MG/5ML SDV (FOR ANES.) As Ordered ONE (09:15)
[2022-02-21] MEDS ORDERED: fentaNYL 100 MCG/2 ML INJECTION As Ordered ONE (09:15)
[2022-02-21] MEDS ORDERED: CIPRODEX OTIC SUSP 7.5ML As Ordered ONE (09:45)
[2022-02-21] MEDS ORDERED: ACETAMINOPHEN 1000MG 100ML IV BTL (OFIRMEV) (J0131 PER 10MG) As Ordered ONE (10:43)
[2022-02-21] MEDS ORDERED: oxyCODONE 5MG TAB PO PRN (11:40)
[2022-02-21] MEDS ORDERED: KETOROLAC 30 MG/ML 1ML VIAL IV ONE (11:40)
[2022-02-21] MEDS ORDERED: fentaNYL 100 MCG/2 ML INJECTION IV PRN (11:40)
[2022-02-21] MEDS ORDERED: ONDANSETRON 4MG 2ML VIAL IV PRN (11:40)
[2022-02-21 11:54] VITALS: BP 101/61
== END 2022-02-21 12:23 | disposition home or self-care (01) ==
LOC: M SDC 08:10
PROVIDERS: ATTEND Otolaryngology
DX: H69.93 Unspecified Eustachian tube disorder, bilateral (principal); H92.02 Otalgia, left ear; H65.00 Acute serous otitis media, unspecified ear; Z79.899 Other long term (current) drug therapy
CPT/HCPCS: 69436; 81025; J0131; J1100; J1885; J2250; J2405; J3010